=== PATIENT | male | born 1935 | race Caucasian/White ===

== ENCOUNTER 2017-04-12 14:10 | Outpatient (CLI) | payer OTHER ==
[~2017-04-12 14:10] MED LIST: AMBIEN10 MG PO; AMLODIPINE BES2.5 MG PO; AMLODIPINE BESYL5 MG PO; FLUCONAZOLE100 MG PO; KETOCONAZOLE15 GM TP; METOPROLOL TART50 MG PO; PLAVIX75 MG PO; PNEU16DI2; TAMS0.4C PO; TORSEMIDE20 MG PO
== END 2017-04-12 14:20 | disposition home or self-care (01) ==
LOC: LAB 14:10
DX: D64.89 Other specified anemias (principal); M06.4 Inflammatory polyarthropathy

== ENCOUNTER 2017-04-12 14:34 | Outpatient (CLI) | payer OTHER | END 2017-04-12 14:36 | disposition home or self-care (01) | LOC: RAD 14:34 | DX: Z96.652 Presence of left artificial knee joint (principal); B96.89 Other specified bacterial agents as the cause of diseases classified elsewhere ==

== ENCOUNTER 2017-04-12 14:38 | Outpatient (CLI) | payer OTHER | END 2017-04-12 14:51 | disposition home or self-care (01) | LOC: SONOGRAMA 14:38 | DX: C61 Malignant neoplasm of prostate (principal); Z85.528 Personal history of other malignant neoplasm of kidney; K40.90 Unilateral inguinal hernia, without obstruction or gangrene, not specified as recurrent ==

== ENCOUNTER 2017-05-10 09:01 | Outpatient (CLI) | payer OTHER | END 2017-05-10 10:00 | disposition home or self-care (01) | LOC: NUCLEAR 09:01 | DX: T84.033A Mechanical loosening of internal left knee prosthetic joint, initial encounter (principal); M25.562 Pain in left knee; Z96.652 Presence of left artificial knee joint | CPT/HCPCS: 78315; 78802; A9556 ==